=== PATIENT | male | born 1945 | race Caucasian/White ===

== ENCOUNTER 2018-04-21 09:27 | Observation (INO) | payer MEDICARE, OTHER ==
--- NOTE | 2018-04-21 09:57 | ED PDOC ---
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 Patient experienced elevated blood pressure last night, but he took his BP meds and went to sleep. This morning he woke up with a pressure sensation in the back of his head, which he normally gets when his BP is elevated, and a dizziness sensation, which he does not normally get. He took his blood pressure and found it to be 175/108. He took his BP meds and called 911. EMS arrived and found the patient to be feeling better and he instructed them he was ok and told them to leave. He continued to feel dizzy so he decided to call 911 a second time and come to the emergency room. He is accompanied by his son. Son reports that the patient usually lives with the patient's , but she is currently out of the country and the patient's diet as been containing more salt of late. PMD: Dr. Roderick Hawkins Public Health Representative: Dr. Maegan Richardson Social: Lives with but she is current out of the country. Son lives close by. (HangZane) Past Medical History - Provider Review Nursing Documentation Reviewed: Yes - Infectious Disease Hx of Infectious Diseases: None - Cardiac Hx Cardiac Disorders: Yes Hx Hypertension: Yes - Pulmonary Hx Respiratory Disorders: No - Neurological Hx Neurological Disorder: Yes HX Cerebrovascular Accident: Yes (2006) - HEENT Hx HEENT Disorder: Yes (glasses) - Renal Hx Renal Disorder: Yes (unknown) - Endocrine/Metabolic Hx Endocrine Disorders: Yes Hx Diabetes Mellitus Type 2: Yes - Hematological/Oncological Hx Blood Disorders: No - Integumentary Hx Dermatological Disorder: No - Musculoskeletal/Rheumatological Hx Musculoskeletal Disorders: No - Gastrointestinal Hx Gastrointestinal Disorders: No - Genitourinary/Gynecological Hx Genitourinary Disorders: No - Psychiatric Hx Psychophysiologic Disorder: No Hx Substance Use: No - Anesthesia Hx Anesthesia: No Hx Anesthesia Reactions: No Hx Malignant Hyperthermia: No Family/Social History - Physician Review Nursing Documentation Reviewed: Yes Family/Social History: No Known Family HX Smoking Status: Never Smoked Hx Alcohol Use: No Hx Substance Use: No Allergies/Home Meds Allergies/Adverse Reactions: Allergies No Known Allergies Allergy (Verified 09/16/16 11:16) Home Medications: Home Meds Medication Instructions Recorded Confirmed Carvedilol [Coreg] 25 mg PO BID 09/16/16 04/21/18 Clopidogrel [Plavix] 75 mg PO DAILY 09/16/16 04/21/18 Enalapril Maleate [Vasotec] 20 mg PO BID 09/16/16 04/21/18 Furosemide [Lasix] 20 mg PO DAILY 09/16/16 04/21/18 Glimepiride [Amaryl] 4 mg PO BID 09/16/16 04/21/18 Simvastatin [Zocor] 40 mg PO HS 09/16/16 04/21/18 amLODIPine [Norvasc] 10 mg PO DAILY 09/16/16 04/21/18 hydrALAZINE [Apresoline] 50 mg PO TID 09/16/16 04/21/18 Calcitriol 0.25 mcg PO DAILY 04/21/18 04/21/18 SITagliptin [Januvia] 25 mg PO DAILY 04/21/18 04/21/18 amLODIPine [Norvasc] 10 mg PO DAILY 04/21/18 04/21/18 diltiaZEM CD [Cardizem CD] 240 mg PO DAILY 04/21/18 04/21/18 Review of Systems - Physician Review All systems were reviewed & negative as marked: Yes - Review of Systems Constitutional: Normal. absent: Fatigue, Fevers Eyes: Normal. absent: Vision Changes ENT: Normal. absent: Sore Throat Respiratory: Normal. absent: SOB, Cough Cardiovascular: Normal. absent: Chest Pain, Palpitations, Calf Pain Gastrointestinal: Normal. absent: Abdominal Pain, Constipation, Diarrhea, Nausea, Vomiting Genitourinary Male: Normal. absent: Dysuria, Frequency Musculoskeletal: Normal Skin: Normal Neurological: Headache (resolved), Dizziness (resolved). absent: Focal Weakness , Speech Changes, Facial Droop Endocrine: Normal Hemo/Lymphatic: Normal. absent: Adenopathy Psychiatric: Normal. absent: Anxiety Physical Exam Vital Signs Reviewed: Yes Temperature: Afebrile Blood Pressure: Hypertensive Pulse: Regular Respiratory Rate: Normal Appearance: Positive for: Well-Appearing, Non-Toxic, Comfortable Pain Distress: None Mental Status: Positive for: Alert and Oriented X 3 - Systems Exam Head: Present: Atraumatic, Normocephalic Pupils: Present: PERRL. No: Sluggish, Non-Reactive, Pinpoint Extroacular Muscles: Present: EOMI Conjunctiva: Present: Normal Mouth: Present: Moist Mucous Membranes Nose (External): Present: Atraumatic Nose (Internal): Present: Normal Inspection, No Active Bleeding, Moist Neck: Present: Normal Range of Motion Respiratory/Chest: Present: Clear to Auscultation, Good Air Exchange. No: Respiratory Distress, Accessory Muscle Use Cardiovascular: Present: Regular Rate and Rhythm, Normal S1, S2. No: Murmurs Abdomen: No: Tenderness, Distention, Peritoneal Signs Upper Extremity: Present: Normal Inspection. No: Cyanosis, Edema Lower Extremity: Present: Normal Inspection. No: Edema Neurological: Present: GCS=15, CN II-XII Intact (baseline left sided deficit, per patient and son), Speech Normal, Motor Func Grossly Intact, Normal Sensory Function, Normal Cerebellar Funct, Memory Normal, Other (NIH stroke scale - 1 point for facial asymetry (baseline for patient per patient and son)) Skin: Present: Warm, Dry, Normal Color. No: Rashes Lymphatic: No: Cervical Adenopathy Psychiatric: Present: Alert, Oriented x 3, Normal Insight, Normal Concentration , Normal Affect, Normal Mood Vital Signs Temp Pulse Resp BP Pulse Ox 04/21/18 12:44 86 18 150/84 97 04/21/18 09:37 98.4 F 88 19 153/92 H 97 Medical Decision Making Re-evaluation Time: 12:05 Reassessment Condition: Re-examined, Improved - Lab Interpretations I have reviewed the lab results: Yes - RAD Interpretation Sapphire Stylus Grinder: ED Physician, Radiologist - EKG Interpretation Interpreted by ED Physician: Yes Type: 12 lead EKG Comparison: No previous EKG avail. ED Course and Treatment: 04/21/18 11:47 Patient Seen with Resident: In agreement with resident note which contains more details about the patient. Patient seen and evaluated with resident. Came up with plan and treatment together.. 73 year old male complaining of high blood pressure and dizziness. CT Head, CXR, EKG, and Labs were ordered. (Hira Calderón) 04/21/18 10:03 Patient is a 73 year old male with a past medical history of diabetes, hypertension, hx of CA (1 stent) and CVA 12 years ago presenting with dizziness and high blood pressure. He took all of his blood pressure medication this morning after noticing his BP was elevated at 175/108 and is currently asymptomatic. NIH Stroke Scale 1 - point for facial asymmetry, which is baseline for patient per patient and son at bedside. EKG - sinus rhythm at 69bpm, left axis deviation, RBBB, PVC, Q waves in leads II , III, aVF, V1, V3-V6, flipped t waves in leads I, aVL - no prior EKG available for comparison Labs, CXR and Head CT 04/21/18 12:05 Discussed results of normal Head CT and labs but abnormal EKG with patient and his son. Due to abnormal EKG, with cardiac history and no previous EKG to compare to, a call was placed to Dr. Cruz to request a bed for tele observation. 04/21/18 12:[address] Cruz and she has accepted patient to be admitted under her service for remote tele observation. She requested a consult to Dr. Leon Garcia , Neurology. Updated patient and family members. They are agreeable and patient will be admitted to Dr. Cruz. (Zane Mauricio) - Lab Interpretations Lab Results: 04/21/18 11:10 04/21/18 11:10 Lab Results 04/21/18 11:30: Urine Color Yellow, Urine Appearance Clear, Urine pH 6.0, Ur Specific Starke 1.015, Urine Protein 100 H, Urine Glucose (UA) >=1000, Urine Ketones Negative, Urine Blood Negative, Urine Nitrate Negative, Urine Bilirubin Negative, Urine Urobilinogen 0.2, Ur Leukocyte Esterase Negative, Urine RBC 0 - 2, Urine WBC 0 - 2, Ur Epithelial Cells 0 - 2, Urine Bacteria Neg 04/21/18 11:10: PT 11.3, INR 0.98, APTT 29.7 04/21/18 11:10: Sodium 135, Potassium 4.1, Chloride 100, Carbon Dioxide 26, Anion Gap 14, BUN 25 H, Creatinine 1.5, Est GFR ( Amer) 56, Est GFR (Non- Af Amer) 46, Random Glucose 331 H* D, Calcium 8.8, Magnesium 2.2, Total Bilirubin 0.6, AST 25, ALT 29, Alkaline Phosphatase 75, Lactate Dehydrogenase 497, Total Creatine Kinase 142, Troponin I 0.01, Total Protein 7.0, Albumin 3.9 , Globulin 3.1, Albumin/Globulin Ratio 1.2 04/21/18 11:10: WBC 10.6 D, RBC 5.17, Hgb 15.9, Hct 46.3, MCV 89.6, MCH 30.8, MCHC 34.3, RDW 13.6, Plt Count 197, MPV 11.1 H, Gran % 86.0 H, Lymph % (Auto) 10.8 L, Sanborn % (Auto) 2.1, Eos % (Auto) 0.8 L, Baso % (Auto) 0.3, Gran # 9.09 H , Lymph # (Auto) 1.1 L, Sanborn # (Auto) 0.2, Eos # (Auto) 0.1, Baso # (Auto) 0.03 - RAD Interpretation Narrative RAD Interpretations (Text): 04/21/18 11:45 CXR: no acute disease Head CT w/o: No acute intracranial findings (Zane Mauricio) Radiology Orders: 04/21/18 09:50 HEAD W/O CONTRAST [CT] Stat 04/21/18 09:54 CHEST PORTABLE [RAD] Stat - EKG Interpretation EKG Interpretation (Text): EKG - sinus rhythm at 69bpm, left axis deviation, RBBB, PVC, Q waves in leads II , III, aVF, V1, V3-V6, flipped t waves in leads I, aVL - no prior EKG available for comparison (Zane Mauricio) - Medication Orders Current Medication Orders: Dextrose (Dextrose 50% Inj) 0 ml IV STAT PRN; Protocol PRN Reason: Hypoglycemia Protocol Dextrose (Dextrose 5% In Water 1000 Ml) 1,000 mls @ 0 mls/hr IV .Q0M PRN; Protocol; Per Protocol PRN Reason: Hypoglycemia Protocol Insulin Human Regular (Humulin R) 0 units SC ACHS NALDO PRN Reason: Protocol Discontinued Medications Aspirin (Aspirin Chewable) 324 mg PO STAT STA Stop: 04/21/18 12:07 Last Admin: 04/21/18 12:38 Dose: 324 mg Disposition/Present on Arrival - Present on Arrival Any Indicators Present on Arrival: No History of DVT/PE: No History of Uncontrolled Diabetes: No Urinary Catheter: No History of Decub. Ulcer: No History Surgical Site Infection Following: None - Disposition Have Diagnosis and Disposition been Completed?: Yes Disposition Time: 12:14 Patient Plan: Admission, Observation - Disposition Diagnosis: Dizziness Disposition: HOSPITALIZED Patient Problems: Current Active Problems Problem Status Onset Dizziness Acute Condition: FAIR
[2018-04-21 11:23] LABS: BASO # 0.03 K/mm3 (0.0-2.0); BASO % 0.3 % (0.0-3.0); EOS # 0.1 (0.0-0.7); EOS % 0.8 % (1.5-5.0); GRAN # 9.09 (1.4-6.5); HEMOGLOBIN 15.9 g/dL (14.0-18.0); LYMPH # 1.1 (1.2-3.4); LYMPH % 10.8 % (22.0-35.0); MEAN CELL VOLUME 89.6 fl (80.0-105.0); MEAN CORPUSCULAR HEMOGLOBIN 30.8 pg (25.0-35.0); MEAN CORPUSCULAR HGB CONC 34.3 g/dl (31.0-37.0); MEAN PLATELET VOLUME 11.1 fl (7.0-11.0); MONO # 0.2 (0.1-0.6); MONO % 2.1 % (1.0-6.0); RBC 5.17 10^6/uL (3.5-6.1); RED CELL DISTRIBUTION WIDTH 13.6 % (11.5-14.5); WHITE BLOOD COUNT 10.6 10^3/ul (4.5-11.0)
[2018-04-21 11:39] LABS: INR 0.98; PARTIAL THROMBOPLASTIN TIME 29.7 Seconds (25.1-36.5); PROTHROMBIN TIME 11.3 SECONDS (9.4-12.5)
--- NOTE | 2018-04-21 11:40 | CT ---
Date of service: 04/21/2018 PROCEDURE: CT HEAD WITHOUT CONTRAST. HISTORY: dizziness, hx of CVA, r/o acute CVA COMPARISON: None available. TECHNIQUE: Axial computed tomography images were obtained through the head/brain without intravenous contrast. Radiation dose: Total exam DLP = 895 mGy-cm. This CT exam was performed using one or more of the following dose reduction techniques: Automated exposure control, adjustment of the mA and/or kV according to patient size, and/or use of iterative reconstruction technique. FINDINGS: HEMORRHAGE: No intracranial hemorrhage. BRAIN: No mass effect or edema. Severe chronic microvascular changes VENTRICLES: Unremarkable. No hydrocephalus. CALVARIUM: Unremarkable. PARANASAL SINUSES: Unremarkable as visualized. No significant inflammatory changes. MASTOID AIR CELLS: Unremarkable as visualized. No inflammatory changes. OTHER FINDINGS: Large sebaceous cyst in the right occipital scalp IMPRESSION: No acute intracranial findings
[2018-04-21 11:44] LABS: ALB/GLOB RATIO 1.2 (1.1-1.8); ALBUMIN 3.9 g/dL (3.0-4.8); CALCIUM 8.8 mg/dL (8.4-10.5)
[2018-04-21 11:48] LABS: TROPONIN I 0.01 ng/mL
[2018-04-21 12:13] LABS: URINE BILIRUBIN NEGATIVE (NEGATIVE); URINE BLOOD NEGATIVE (NEGATIVE); URINE GLUCOSE (UA) >=1000 mg/dL (NEGATIVE); URINE LEUKOCYTE ESTERASE NEGATIVE Leu/uL (NEGATIVE); URINE PROTEIN 100 mg/dL (<30 mg/dL); URINE UROBILINOGEN 0.2 E.U./dL (<1 E.U./dL)
[2018-04-21 12:15] LABS: URINE APPEARANCE CLEAR (CLEAR); URINE COLOR YELLOW (YELLOW)
[2018-04-21] MEDS ORDERED: Dextrose 50% SYRINGE Inj (50 ml) IV PRN (12:17)
[2018-04-21 12:32] LABS: URINE BACTERIA NEG (NEG); URINE EPITHELIAL CELLS 0 - 2 /hpf (0-5); URINE RBC 0 - 2 /hpf (0-2); URINE WBC 0 - 2 /hpf (0-6)
--- NOTE | 2018-04-21 14:47 | RAD ---
Date of service: 04/21/2018 HISTORY: dizzniess, h/o RI COMPARISON: No prior. FINDINGS: LUNGS: No active pulmonary disease. PLEURA: No significant pleural effusion identified, no pneumothorax apparent. CARDIOVASCULAR: Normal. OSSEOUS STRUCTURES: No significant abnormalities. VISUALIZED UPPER ABDOMEN: Normal. OTHER FINDINGS: None. IMPRESSION: No active disease.
[2018-04-21 15:09] VITALS: BMI 32.1
[2018-04-21] MEDS: Insulin Regular 1 UNITS/0.01 ML ML SC SCH ×2 (17:46→22:51)
--- NOTE | 2018-04-21 22:03 | CARD ---
APPROVED REPORT Date of service: 04/21/2018 EKG Measurement Heart [id number] <Conclusion> Sinus rhythm with occasional premature ventricular complexes Possible Left atrial enlargement Left axis deviation Right bundle branch block Inferior infarct, age undetermined Anterior infarct, age undetermined Abnormal ECG
--- NOTE | 2018-04-22 00:06 | CON ---
DATE: 04/21/2018 HISTORY OF PRESENT ILLNESS: This is a 73-year-old male with past medical history of diabetes, hypertension, history of UT and stroke 12 years ago with residual left-sided weakness. Came to the emergency room with dizziness and high blood pressure. The patient woke up and felt pressure sensation on the back of his head and found to have high blood pressure 175/108 and called 911, came here, feeling dizzy. Now, he is feeling much better and called to evaluate the patient. PAST MEDICAL HISTORY: As above. REVIEW OF THE SYSTEMS: Ten-point review of systems was negative except dizziness. ALLERGIES: THE PATIENT HAS NO KNOWN DRUG ALLERGY. HOME MEDICATIONS: Coreg, Plavix, Vasotec, Lasix, Amaryl, Zocor, Norvasc, Januvia and Cardizem. PHYSICAL EXAMINATION: VITAL SIGNS: Blood pressure 153/92. HEENT: Normocephalic, atraumatic. NECK: Supple. NEUROLOGIC: Alert, awake, orientated x3. No aphasia. Cranial nerves II through XII were tested. Pupils reactive. EOM intact. Visual field full. No facial asymmetry. Tongue midline. Motor examination: Residual weakness on the left side was noted. Deep tendon reflexes 1+. Plantars downgoing. Sensory appears intact. Cerebellar: No dysmetria. The patient is able to ambulate. LABORATORY DATA: CAT scan of the head was done, which was normal. ASSESSMENT: Continue present management. We will follow up. Levy Garcia MD
[2018-04-22 01:44] VITALS: RESP 19; TEMP 97.9; O2SAT 97
[2018-04-22 08:22] VITALS: BP 135/88
[2018-04-22] MEDS ORDERED: diltiaZEM 240 mg/24 Hours CD Cap PO SCH (10:00)
[2018-04-22 10:13] VITALS: PULSE 68
--- NOTE | 2018-04-23 08:13 | PN ---
DATE: 04/22/2018 NEUROLOGY FOLLOWUP CHIEF COMPLAINT: Follow up for dizziness. SUBJECTIVE: The patient had elevated blood sugars as well as elevated blood pressures causing transient dizziness. Currently, he is doing much better. PAST MEDICAL HISTORY: History of CVA 12 years ago with residual mild left-sided weakness; type 2 diabetes mellitus; coronary artery disease; status post stent. REVIEW OF SYSTEMS: Fourteen-point review of systems is negative except as per the HPI. PAST MEDICAL HISTORY: As above. HOME MEDICATIONS: Reviewed by nurses' reconciliation sheet. SOCIAL HISTORY: No illicit drug use, smoking or EtOH abuse at this time. FAMILY HISTORY: Noncontributory. LABORATORY DATA: Today's blood sugar is 249. PHYSICAL EXAMINATION: VITAL SIGNS: Temperature afebrile, pulse rate of 60, blood pressure of 135/80, respiratory rate of 18, oxygen saturation 98% by room air. GENERAL: The patient is sitting up in bed, in no acute distress. HEENT: Atraumatic, normocephalic. PERRLA. Extraocular muscles intact. NECK: Supple. No JVD, no adenopathy noted. LUNGS: Clear to auscultation. No adventitious sounds. HEART: S1, S2. Normal rate and rhythm. No murmurs, rubs or gallops. ABDOMEN: Soft, nontender and nondistended. Bowel sounds are present. EXTREMITIES: No clubbing. No cyanosis. Peripheral pulses 2+ felt bilaterally. NEUROLOGIC: The patient is alert and oriented to person, place, month and year. Speech is fluent without any errors. Cranial nerves II through XII intact. Motor exam: Moves all extremities equally except for mild residual left-sided weakness from prior CVA. DTRs are 1+ throughout and absent at the ankles. Plantars are downgoing bilaterally. Sensory exam: Decreased light touch and pinprick up to the calves bilaterally. Decreased vibration of the toes. Coordination: [id number] is intact. No dysmetria noted. IMPRESSION: Dizziness is secondary to hypertensive urgency, superimposed hyperglycemia. At this time, recommend, 1. Aspirin 81 mg, Lipitor 40 mg for stroke prevention in addition to Plavix of 75. 2. Continue to keep his blood pressure between 130s-140s systolic and diastolic 70-80s and adjust blood pressure medications. 3. Keep his blood sugars between 140-180 and prevent hyperglycemic accelerations and hypoglycemic events. Recommended diabetic diet. 4. We can follow up as an outpatient. He is clinically stable. Crow Garcia MD
--- NOTE | 2018-04-23 13:11 | HP ---
DATE OF EXAM: 04/21/2018 HISTORY OF PRESENT ILLNESS: This 73-year-old male was examined at his bedside on the cardiac marsh and this case was reviewed in detail with his nurse, Chelsey Medrano, registered nurse. The patient presented to [facility] ER earlier today. He has longstanding history of type 2 diabetes mellitus, hypertension, status post myocardial infarction and the placement of a coronary stent. He had a stroke 12 years ago, which left him with left-sided weakness and earlier today, the patient presented with complaints of dizziness, near syncope and accelerated hypertension. The patient expressed that he was home alone preparing meals and his was on a [place] vacation. He feels that due to dietary indiscretion with added salt and noncompliance with diet and medication, he may have experienced accelerated hypertension as witnessed by his electronic blood pressure monitor at home. In the emergency room, he was noted to be short of breath with presenting blood pressure of 153/92 and was admitted for further evaluation of the above. PAST MEDICAL HISTORY: Significant for chronic hypertension, coronary artery stent, type 2 diabetes mellitus, hyperlipidemia and degenerative arthritis. ALLERGIES: THE PATIENT DENIES ALLERGIES TO MEDICATION. OUTPATIENT MEDICATIONS: Included Norvasc, calcitriol, Vasotec, Plavix, Amaryl, Lasix, hydralazine, Zocor, Januvia, Cardizem and Coreg. SOCIAL HISTORY: He is a social drinker, nonsmoker, non IV drug misuser. FAMILY HISTORY: Noncontributory. REVIEW OF SYSTEMS: CONSTITUTIONAL REVIEW: Denied fever or chills. HEAD REVIEW: Denied headache or seizure. EYE REVIEW: No change in visual acuity. EAR REVIEW: No hearing loss. THROAT REVIEW: No swallowing difficulty. NECK REVIEW: No stiffness. CARDIAC REVIEW: As per HPI. PULMONARY: No cough. No hemoptysis. GI: Peptic ulcer disease with GERD. : No dysuria. SKIN: No rash. VASCULAR: No claudication. PSYCHOLOGICAL: No depression. NEUROLOGICAL: Old stroke. PHYSICAL EXAMINATION: GENERAL: The patient was in a normal sinus rhythm on the swimming pool salesperson at the time of my examination. VITAL SIGNS: Temperature of 98.4, respiration 17, pulse 85 and blood pressure 149/95 with a pulse ox of 98%. HEENT: Head: Normocephalic, atraumatic. Eyes: No icterus. Ears: Clear. Throat: Noninjected. NECK: Supple. HEART: Regular S1, S2. No pathological rubs, murmurs or gallops. LUNGS: Clear. ABDOMEN: Soft. EXTREMITIES: No edema. SKIN: Without rash. NEUROLOGICAL: Mild left-sided motor weakness. Alert and oriented x3. VASCULAR: Legs warm to touch. SKIN: Without ulceration. LABORATORY DATA: White count 10,600, hemoglobin 15.9, hematocrit 46.3, platelets 197,000. PT/INR is 0.98, PTT 29.7. Sodium 135, K 4.1, chloride 100, bicarb 26, BUN 25, creatinine 1.5, random blood sugar 331, calcium 8.8, magnesium 2.2. Bilirubin 0.6, AST 25, ALT 29, alkaline phosphatase 75. CPK 142, troponin 0.01. Urinalysis showed 100 mg/dL of protein with no bacteria. EKG was reviewed. It showed normal sinus rhythm with occasional PVCs, left axis deviation with right bundle-branch block and old inferior and anterior wall infarcts. Head CT was reviewed. It showed no acute intracranial findings. No evidence of hemorrhage or infarct. He was noted to have a large sebaceous cyst on his right occipital scalp. Chest x-ray was reviewed. He showed no active pulmonary disease. There were no effusions, pneumothorax or infiltrates. There was no evidence of congestive heart failure. IMPRESSION: A 73-year-old male with presyncope, dizziness, accelerated hypertension, uncontrolled insulin-dependent diabetes mellitus with history of old stroke as well as stable atherosclerotic heart disease and chronic renal insufficiency stage III in the setting of type 2 diabetes mellitus and accelerated hypertension. PLAN: To admit this patient to the cardiac marsh where he will be monitored and have medications adjusted and be seen by Dr. Levy Garcia from Neurology. The patient is ordered to have a heart-healthy bland diabetic diet. He will have medications adjusted regarding accelerated hypertension and based on clinical progress be readied for discharge in a.m. if stable. Greater than 75 minutes was spent in the care management, review of labs, orders, x-rays and discussion of this patient with himself and nursing. All questions were answered. Ana Cruz MD [facility] # [id number]
--- NOTE | 2018-04-23 14:05 | DS ---
DATE OF EXAM: 04/22/2018 FINAL DIAGNOSES: Near syncope; uncontrolled hypertension, resolved; type 2 diabetes mellitus; chronic renal failure stage III; history of old stroke; history of myocardial infarction; stable atherosclerotic heart disease with coronary artery stents; hyperlipidemia. DISPOSITION: Home. The patient was advised to follow up in my office within 1 week. DISCHARGE DIET: Heart-healthy soft bland cardiac diabetic. DISCHARGE MEDICATIONS: Hydralazine 50 mg p.o. t.i.d., Cardizem CD 240 mg p.o. daily, Norvasc 10 mg p.o. daily Zocor 40 mg p.o. at bedtime, Januvia 25 mg p.o. daily, Amaryl 4 mg p.o. b.i.d., Lasix 20 mg p.o. daily, Vasotec 20 mg p.o. b.i.d., Plavix 75 mg p.o. daily, Coreg 25 mg p.o. b.i.d. and calcitriol 0.25 mcg p.o. daily. SUMMARY: This 73-year-old male presented to [facility] with accelerated hypertension, headache and near syncope after admitting to dietary indiscretion and medication noncompliance. He was ruled out for myocardial infarction, was seen in consultation by Dr. Levy Garcia from Neurology who cleared this patient for discharge and at the time of his discharge, his vital signs were temperature 97.9, respirations 19, pulse 68, blood pressure 135/88. Discharge labs showed white count 10,600, hemoglobin 15.9, hematocrit 46.3, platelets 197,000 with blood sugar of 166, BUN of 25, creatinine of 1.5 and all liver function testing normal. The patient was cleared for discharge to home. A renal ultrasound dated 09/29/2017 was reviewed which showed no evidence of hydronephrosis, but evidence of non-obstructing kidney stone and renal cyst. The patient was advised to be compliant with diet and medication and was given a followup date in my office in 1 week and told to reappear to the [facility] ER for any change in signs and symptoms. Greater than 35 minutes was spent in the care management, review of labs, orders, x-rays and discussion of this patient's case with himself and nurse, Jazmin Larkin. All questions were answered. Ana Cruz MD [facility] # [id number]
== END 2018-04-22 16:45 | disposition home or self-care (01) ==
LOC: ED 09:27 → ERH 12:14 → 3RSO 15:08
PROVIDERS: ADMIT Internal Medicine; ATTEND Internal Medicine
DX: I16.0 Hypertensive urgency (principal); E11.65 Type 2 diabetes mellitus with hyperglycemia; E11.22 Type 2 diabetes mellitus with diabetic chronic kidney disease; N18.3 Chronic kidney disease, stage 3 (moderate); I12.9 Hypertensive chronic kidney disease with stage 1 through stage 4 chronic kidney disease, or unspecified chronic kidney disease; I25.10 Atherosclerotic heart disease of native coronary artery without angina pectoris; I69.354 Hemiplegia and hemiparesis following cerebral infarction affecting left non-dominant side; R55 Syncope and collapse; I25.2 Old myocardial infarction; E78.5 Hyperlipidemia, unspecified; Z95.5 Presence of coronary angioplasty implant and graft; Z91.14 Patient's other noncompliance with medication regimen; Z91.11 Patient's noncompliance with dietary regimen; Z79.02 Long term (current) use of antithrombotics/antiplatelets; Z79.4 Long term (current) use of insulin
CPT/HCPCS: 70450; 71045; 80053; 81001; 82550; 82948; 83615; 83735; 84484; 85025; 85610; 85730; 93005; 99285; G0378

== ENCOUNTER 2018-05-05 12:47 | Emergency (ER) | payer MEDICARE, OTHER ==
[2018-05-05 12:47] VITALS: BMI 32.1
--- NOTE | 2018-05-05 13:47 | ED PDOC ---
Arrival/HPI - History of Present Illness Narrative History of Present Illness (Text): 05/05/18 13:40 Pt is a 73 yo M DM, HTN, [place] s/p stent, CVA who presents today for elevated bp and dizziness. Pt states that this AM he woke up and was dizzy, when he went to check his BP, he noted that it was elevated but does not remember how high but believes it was in the 190s. He then took his usual BP medications, but took an extra dose of hydralazine 50mg@ 9AM. Then @ 11 AM noted that he was still dizzy so he took another hydralazine without checking his BP. He denies any lightheadedness, weakness, headache, fevers, chills, CP, SOB, cough, n/v or abdominal pain. Pmhx: HTN, DM, [place] s/p stent, CVA in Pshx: Denies All: NKDA Social: Denies smoking, etoh or illicit drug use PMD: Dr. Hawkins Time/Duration: 4-6 hours <Preston Ramesh - Last Filed: 05/05/18 15:27> <Carlyle Tran - Last Filed: 05/05/18 15:28> - General Chief Complaint: High Blood Pressure Time Seen by Provider: 05/05/18 12:57 Past Medical History - Provider Review Nursing Documentation Reviewed: Yes - Infectious Disease Hx of Infectious Diseases: None - Cardiac Hx Cardiac Disorders: Yes Hx Hypertension: Yes - Pulmonary Hx Respiratory Disorders: No - Neurological Hx Neurological Disorder: Yes HX Cerebrovascular Accident: Yes (2005) - HEENT Hx HEENT Disorder: Yes () - Renal Hx Renal Disorder: Yes - Endocrine/Metabolic Hx Endocrine Disorders: Yes Hx Diabetes Mellitus Type 2: Yes - Hematological/Oncological Hx Blood Disorders: No - Integumentary Hx Dermatological Disorder: No - Musculoskeletal/Rheumatological Hx Musculoskeletal Disorders: No - Gastrointestinal Hx Gastrointestinal Disorders: No - Genitourinary/Gynecological Hx Genitourinary Disorders: No - Psychiatric Hx Psychophysiologic Disorder: No Hx Substance Use: No - Anesthesia Hx Anesthesia: No Hx Anesthesia Reactions: No Hx Malignant Hyperthermia: No <Preston Ramesh - Last Filed: 05/05/18 15:27> Family/Social History - Physician Review Nursing Documentation Reviewed: Yes Family/Social History: No Known Family HX Smoking Status: Former Smoker Hx Alcohol Use: No Hx Substance Use: No <Preston Ramesh - Last Filed: 05/05/18 15:27> Allergies/Home Meds <Preston Ramesh - Last Filed: 05/05/18 15:27> <JustinojaechauCarlyle - Last Filed: 05/05/18 15:28> Allergies/Adverse Reactions: Allergies No Known Allergies Allergy (Verified 05/05/18 12:49) Home Medications: Home Meds Medication Instructions Recorded Confirmed Carvedilol [Coreg] 25 mg PO BID 09/16/16 05/05/18 Clopidogrel [Plavix] 75 mg PO DAILY 09/16/16 05/05/18 Enalapril Maleate [Vasotec] 20 mg PO BID 09/16/16 05/05/18 Furosemide [Lasix] 20 mg PO DAILY 09/16/16 05/05/18 Glimepiride [Amaryl] 4 mg PO BID 09/16/16 05/05/18 Simvastatin [Zocor] 40 mg PO HS 09/16/16 05/05/18 amLODIPine [Norvasc] 10 mg PO DAILY 09/16/16 05/05/18 hydrALAZINE [Apresoline] 50 mg PO TID 09/16/16 05/05/18 Calcitriol 0.25 mcg PO DAILY 04/21/18 05/05/18 SITagliptin [Januvia] 25 mg PO DAILY 04/21/18 05/05/18 amLODIPine [Norvasc] 10 mg PO DAILY 04/21/18 05/05/18 diltiaZEM CD [Cardizem CD] 240 mg PO DAILY 04/21/18 05/05/18 Review of Systems - Physician Review All systems were reviewed & negative as marked: Yes - Review of Systems Constitutional: Other (admits to dizziness, denies lightheadedness, weakness or headache). absent: Fevers Respiratory: Normal Cardiovascular: Normal Gastrointestinal: Normal Neurological: absent: Headache, Dizziness, Focal Weakness <Preston Ramesh - Last Filed: 05/05/18 15:27> Physical Exam Vital Signs Temp Pulse Resp BP Pulse Ox 05/05/18 12:50 98.3 F 61 17 159/88 H 98 Temperature: Afebrile Blood Pressure: Hypertensive (repeat BP is 145/91) Pulse: Regular Respiratory Rate: Normal Appearance: Positive for: Well-Appearing Pain Distress: None Mental Status: Positive for: Alert and Oriented X 3 Finger Stick Blood Glucose: 232 - Systems Exam Head: Present: Atraumatic, Normocephalic Pupils: Present: PERRL Extroacular Muscles: Present: EOMI Mouth: Present: Moist Mucous Membranes Respiratory/Chest: Present: Clear to Auscultation, Good Air Exchange. No: Respiratory Distress, Accessory Muscle Use, Wheezes Cardiovascular: Present: Regular Rate and Rhythm, Normal S1, S2. No: Murmurs Abdomen: Present: Normal Bowel Sounds. No: Tenderness, Distention, Peritoneal Signs, Rebound, Guarding Lower Extremity: Present: Normal Inspection, Neurovascularly Intact. No: Edema, CALF TENDERNESS Neurological: Present: GCS=15, CN II-XII Intact, Speech Normal, Motor Func Grossly Intact, Normal Sensory Function Skin: Present: Warm, Dry, Normal Color. No: Rashes Psychiatric: Present: Alert, Oriented x 3, Normal Insight, Normal Concentration <Preston Ramesh - Last Filed: 05/05/18 15:27> Vital Signs Temp Pulse Resp BP Pulse Ox 05/05/18 13:56 98.3 F 55 L 19 145/91 H 98 05/05/18 12:50 98.3 F 61 17 159/88 H 98 <Carlyle Tran - Last Filed: 05/05/18 15:28> Medical Decision Making ED Course and Treatment: 05/05/18 13:54 Pt is a 73 yo M pwith pmhx detailed above who presents for HTN and dizziness since this AM. He took an extra dose of his BP meds in response to an elevated BP taken at home, pt does not remember what the reading was. - CBC - CMP - Coags - Trops - CT head w/o contrast 05/05/18 14:58 Progress Note: CBC and CMP are back and grossly normal except for elevated Cr at 1.6 which seems to be at baseline. CT Head came back and showed no acute intracranial abnormalities. -Pt is still symptomatic of dizziness but it has improved. After prolonged discussion with pt he wished to go home. Explained the risks of going home, but pt still expressed wishes to go home. Informed pt to go back to PMD and to f/u with neuro, cardio and nephro. Pt was also encourged to come back to ED if he had any worsening of symptoms or any new symptoms developing. - Lab Interpretations Lab Results: Lab Results 05/05/18 12:58: POC Glucose (mg/dL) 234 H - RAD Interpretation Radiology Orders: 05/05/18 13:36 HEAD W/O CONTRAST [CT] Stat - EKG Interpretation EKG Interpretation (Text): 05/05/18 13:47 EKG - sinus ayana at 57 bpm, possible LA enlargement left axis deviation, RBBB, Inferior and anterolateral infarct of undetermined age <Preston Ramesh - Last Filed: 05/05/18 15:27> ED Course and Treatment: Patient Seen With Resident: In agreement with resident note. Patient was seen and evaluated with resident, came up with plan and treatment together. - Lab Interpretations Lab Results: 05/05/18 14:01 05/05/18 14:01 Lab Results 05/05/18 14:01: Sodium 137, Potassium 3.6, Chloride 100, Carbon Dioxide 28, Anion Gap 13, BUN 35 H, Creatinine 1.6 H, Est GFR ( Amer) 52, Est GFR (Non-Af Amer) 43, Random Glucose 240 H, Calcium 9.5, Phosphorus 2.7, Magnesium 2.1, Total Bilirubin 0.6, AST 24, ALT 24, Alkaline Phosphatase 66, Troponin I < 0.01, Total Protein 6.9, Albumin 3.7, Globulin 3.1, Albumin/Globulin Ratio 1.2 05/05/18 14:01: PT 11.3, INR 0.99, APTT 31.0 05/05/18 14:01: WBC 9.1, RBC 5.17, Hgb 16.0, Hct 46.8, MCV 90.5, MCH 30.9, MCHC 34.2, RDW 13.5, Plt Count 193, MPV 10.5, Gran % 78.5 H, Lymph % (Auto) 16.5 L, Weston % (Auto) 3.4, Eos % (Auto) 1.3 L, Baso % (Auto) 0.3, Gran # 7.17 H, Lymph # (Auto) 1.5, Weston # (Auto) 0.3, Eos # (Auto) 0.1, Baso # (Auto) 0.03 05/05/18 12:58: POC Glucose (mg/dL) 234 H - RAD Interpretation Radiology Orders: 05/05/18 13:36 HEAD W/O CONTRAST [CT] Stat - Medication Orders Current Medication Orders: Discontinued Medications Al Hydrox/Mg Hydrox/Simethicone (Maalox Plus 30 Ml) 30 ml PO STAT STA Stop: 05/05/18 15:08 Last Admin: 05/05/18 15:25 Dose: 30 ml <Carlyle Tran - Last Filed: 05/05/18 15:28> Disposition/Present on Arrival - Present on Arrival Any Indicators Present on Arrival: No History of DVT/PE: No History of Uncontrolled Diabetes: No Urinary Catheter: No History of Decub. Ulcer: No History Surgical Site Infection Following: None - Disposition Have Diagnosis and Disposition been Completed?: Yes Disposition Time: 15:02 <Preston Ramesh - Last Filed: 05/05/18 15:27> <Carlyle Tran - Last Filed: 05/05/18 15:28> - Disposition Diagnosis: Dizziness, HTN (hypertension) Disposition: HOME/ ROUTINE Patient Problems: Current Active Problems Problem Status Onset Dizziness Acute HTN (hypertension) Acute Condition: GOOD Discharge Instructions (ExitCare): Vertigo (a Type of Dizziness), High Blood Pressure in Adults Additional Instructions: - Please follow up with your primary doctor within the week. 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 - If the current symptoms worsen, or if new symptoms arise, please return to ER. Referrals: Roderick Hawkins MD [Non-Staff] - Follow up with primary Forms: [id number] (Danish)
[2018-05-05 14:05] LABS: BASO # 0.03 K/mm3 (0.0-2.0); BASO % 0.3 % (0.0-3.0); EOS # 0.1 (0.0-0.7); EOS % 1.3 % (1.5-5.0); GRAN # 7.17 (1.4-6.5); GRAN % 78.5 % (50.0-68.0); LYMPH # 1.5 (1.2-3.4); LYMPH % 16.5 % (22.0-35.0); MEAN CELL VOLUME 90.5 fl (80.0-105.0); MEAN CORPUSCULAR HEMOGLOBIN 30.9 pg (25.0-35.0); MEAN CORPUSCULAR HGB CONC 34.2 g/dl (31.0-37.0); MEAN PLATELET VOLUME 10.5 fl (7.0-11.0); MONO # 0.3 (0.1-0.6); MONO % 3.4 % (1.0-6.0); RBC 5.17 10^6/uL (3.5-6.1); RED CELL DISTRIBUTION WIDTH 13.5 % (11.5-14.5); WHITE BLOOD COUNT 9.1 10^3/ul (4.5-11.0)
[2018-05-05 14:18] LABS: ALB/GLOB RATIO 1.2 (1.1-1.8); ALBUMIN 3.7 g/dL (3.0-4.8); ALT/SGPT 24 U/L (7-56); AST/SGOT 24 U/L (17-59); BLOOD UREA NITROGEN 35 mg/dL (7-21); CALCIUM 9.5 mg/dL (8.4-10.5); GFR NON-AFRICAN AMERICAN 43
[2018-05-05 14:19] LABS: INR 0.99; PROTHROMBIN TIME 11.3 SECONDS (9.4-12.5)
[2018-05-05 14:27] LABS: TROPONIN I < 0.01 ng/mL
[2018-05-05 14:30] VITALS: RESP 19
--- NOTE | 2018-05-05 14:32 | CT ---
Date of service: 05/05/2018 PROCEDURE: CT HEAD WITHOUT CONTRAST. HISTORY: Dizziness COMPARISON: 04/21/2018 TECHNIQUE: Axial computed tomography images were obtained through the head/brain without intravenous contrast. Supplemental Coronal and Sagittal projections created and reviewed. Radiation dose: Total exam DLP = 1028.82 mGy-cm. This CT exam was performed using one or more of the following dose reduction techniques: Automated exposure control, adjustment of the mA and/or kV according to patient size, and/or use of iterative reconstruction technique. FINDINGS: HEMORRHAGE: No intracranial hemorrhage. BRAIN: No mass effect or edema. Cortical and cerebellar atrophy, periventricular small vessel disease. VENTRICLES: Unremarkable. No hydrocephalus. CALVARIUM: Unremarkable. PARANASAL SINUSES: Unremarkable as visualized. No significant inflammatory changes. MASTOID AIR CELLS: Unremarkable as visualized. No inflammatory changes. OTHER FINDINGS: Stable right occipital sebaceous cyst IMPRESSION: No acute intracranial abnormalities. No significant findings to account for the clinical presentation. No significant interval change compared to the prior examination(s).
[2018-05-05] MEDS ORDERED: Alum-Mag Hydrox-Simethicone Susp (30 mL) PO STA (15:07)
[2018-05-05 15:29] VITALS: PULSE 85; O2SAT 97
[2018-05-05 15:36] VITALS: BP 131/73; TEMP 98.1
--- NOTE | 2018-05-06 09:32 | CARD ---
APPROVED REPORT Date of service: 05/05/2018 EKG Measurement Heart [id number] <Conclusion> Sinus bradycardia Possible Left atrial enlargement Left axis deviation/LAHB Right bundle branch block Inferior infarct, age undetermined Anterolateral infarct, age undetermined. NSSTW changes
== END 2018-05-05 15:34 | disposition home or self-care (01) ==
LOC: ED 12:47
DX: I10 Essential (primary) hypertension (principal); R42 Dizziness and giddiness; E11.9 Type 2 diabetes mellitus without complications; I25.2 Old myocardial infarction; Z86.73 Personal history of transient ischemic attack (TIA), and cerebral infarction without residual deficits; Z87.891 Personal history of nicotine dependence

== ENCOUNTER 2018-08-10 07:07 | Outpatient (CLI) | payer MEDICARE | END 2018-08-12 14:32 | disposition home or self-care (01) | LOC: LAB 07:07 ==

== ENCOUNTER 2018-11-16 07:13 | Outpatient (CLI) | payer MEDICARE | END 2018-11-16 07:14 | disposition home or self-care (01) | LOC: LAB 07:13 ==